=== PATIENT | male | born 1935 | race Caucasian/White ===

== ENCOUNTER 2024-05-01 09:41 | Inpatient (IN) | payer OTHER, MEDICARE ==
[2024-05-01 10:28] VITALS: BMI 22.4
[2024-05-01] MEDS: ACETAMINOPHEN 1000 MG/100 ML BAG IVPB ONE (10:59)
[2024-05-01] MEDS: ONDANSETRON 4 MG/2 ML VIAL IVPUSH ONE (10:59)
[2024-05-01] MEDS: SODIUM CHLORIDE 0.9% 500 ML INFUS.BAG IV ONE (10:59)
[2024-05-01 12:24] LABS: HEMATOCRIT 38.4 % (35.4-49); HEMOGLOBIN 12.5 G/dL (11.7-16.9); MCHC 32.6 g/dl (32.0-35.9); MEAN CELL VOLUME 101.2 fl (80-96); MEAN PLT VOLUME 8.3 fl (7.5-11.1); PLATELET COUNT 206.4 10^3/uL (134-434); RBC 3.79 10^6/uL (4.00-5.60); RDW 17.8 % (11.9-15.9)
[2024-05-01 12:36] LABS: ALK PHOS 212 U/L (45-117); ANION GAP 12 mmol/L (4-13); CALCIUM 9.4 mg/dl (8.5-10.1); CHLORIDE 100 mmol/L (98-107); CO2 28 mmol/L (21-32); CREATININE 0.7 mg/dl (0.6-1.3); GLUCOSE,RANDOM 122 mg/dl (74-106); MAGNESIUM 1.8 mg/dL (1.8-2.4); POTASSIUM 4.2 mmol/L (3.5-5.1); SGOT/AST 19 U/L (15-37); SGPT/ALT 8 U/L (7-52); SODIUM 140 mmol/L (136-145); TOT PROT 7.2 g/dl (6.4-8.2)
[2024-05-01 12:53] LABS: PLATELET ESTIMATE ADEQUATE
[2024-05-01] MEDS: LACTATED RINGERS SOLUTION 1,000 ML/1,000 ML INFUS.BAG IV SCH (15:19)
[2024-05-01] MEDS ORDERED: morphine SULFATE 4 MG/ML VIAL ONE (17:58)
[2024-05-01] MEDS: morphine CARPU-JECT 4 MG/1 ML DISP.SYRIN IVPUSH ONE (18:01)
[2024-05-02] MEDS ORDERED: LACTATED RINGERS SOLUTION 1,000 ML/1,000 ML INFUS.BAG IV SCH (00:28)
[2024-05-02] MEDS ORDERED: ONDANSETRON 4 MG/2 ML VIAL IVPUSH PRN (01:26)
[2024-05-02] MEDS: LACTATED RINGERS SOLUTION 1,000 ML/1,000 ML INFUS.BAG IV SCH (01:30)
[2024-05-02] MEDS: MINERAL OIL ENEMA 133 ML ENEMA RC ONE ×2 (01:37→05:12)
[2024-05-02] MEDS: ACETAMINOPHEN 1000 MG/100 ML BAG IVPB PRN (02:29)
[2024-05-02 09:02] LABS: INR 1.25 (0.83-1.09); PROTHROMBIN TIME (PATIENT) 13.8 SEC (9.7-13.0)
[2024-05-02 09:06] LABS: HEMATOCRIT 37.2 % (35.4-49); MCHC 32.3 g/dl (32.0-35.9); MEAN PLT VOLUME 7.5 fl (7.5-11.1); PLATELET COUNT 212 10^3/uL (134-434); RBC 3.76 M/mm3 (4.00-5.60); RDW 19.6 % (11.9-15.9); WHITE BLOOD COUNT 6.2 K/mm3 (4.0-10.0)
[2024-05-02 09:15] LABS: POTASSIUM 4.1 mmol/L (3.5-5.1)
[2024-05-02 09:30] LABS: ALBUMIN 2.9 g/dl (3.4-5.0); BLOOD UREA NITROGEN 22.9 mg/dL (7-18)
[2024-05-02 09:32] LABS: CALCIUM 8.8 mg/dL (8.5-10.1)
[2024-05-02 09:33] LABS: CREATININE 0.7 mg/dL (0.55-1.3)
[2024-05-02 09:35] LABS: BILIRUBIN,TOTAL 1.8 mg/dL (0.2-1)
[2024-05-03] MEDS: ACETAMINOPHEN 1000 MG/100 ML BAG IVPB PRN (04:00)
[2024-05-03 09:59] LABS: BASO % 0.3 % (0-2.0); EOS % 0.4 % (0-4.5); HEMOGLOBIN 11.8 GM/dL (11.7-16.9); LYMPH % 13.1 % (8-40); MCH 32.1 pg (25.7-33.7); MCHC 32.8 g/dl (32.0-35.9); MEAN CELL VOLUME 97.9 fl (80-96); MEAN PLT VOLUME 7.7 fl (7.5-11.1); NEUT % 72.2 % (42.8-82.8); PLATELET COUNT 210 10^3/uL (134-434); RBC 3.68 M/mm3 (4.00-5.60); RDW 19.3 % (11.9-15.9); WHITE BLOOD COUNT 4.7 K/mm3 (4.0-10.0)
[2024-05-03 10:21] LABS: ALBUMIN 2.8 g/dl (3.4-5.0); MAGNESIUM 1.7 mg/dL (1.8-2.4)
[2024-05-03 10:23] LABS: BILIRUBIN,DIRECT 0.6 mg/dL (0.0-0.2)
[2024-05-03 10:24] LABS: PHOSPHOROUS 3.4 mg/dL (2.5-4.9)
[2024-05-03 10:25] LABS: BILIRUBIN,TOTAL 1.8 mg/dL (0.2-1); TOT PROT 5.9 g/dl (6.4-8.2)
[2024-05-03 10:28] LABS: POTASSIUM 3.8 mmol/L (3.5-5.1)
[2024-05-03 10:30] LABS: BLOOD UREA NITROGEN 21.4 mg/dL (7-18); CALCIUM 8.4 mg/dL (8.5-10.1)
[2024-05-03 10:34] LABS: CREATININE 0.6 mg/dL (0.55-1.3)
[2024-05-03] MEDS: MAGNESIUM 1GM/D5W - 1 GM/100 ML IVPB IVPB ONE (11:37)
[2024-05-03] MEDS ORDERED: LIDOCAINE HCL/PF 2% SDV 5ML VIAL ONE (13:56)
[2024-05-03] MEDS ORDERED: DEXAMETHASONE SOD PHOSPHATE 4 MG/1 ML VIAL ONE (13:56)
[2024-05-03] MEDS ORDERED: ONDANSETRON 4 MG/2 ML VIAL ONE (13:56)
[2024-05-03] MEDS ORDERED: MIDAZOLAM HCL 2 MG/2 ML SINGLE DOSE VIAL ONE (13:57)
[2024-05-03] MEDS ORDERED: PROPOFOL 20 ML ONE (14:00)
[2024-05-03] MEDS ORDERED: SUCCINYLCHOLINE CHLORIDE 200 MG/10 ML SYRINGE ONE (14:01)
[2024-05-03] MEDS ORDERED: BUPIVACAINE HCL/PF 0.25% (2.5MG/ML) 10 ML VIAL ONE (14:31)
[2024-05-03] MEDS ORDERED: cefOXitin SODIUM 2 GM VIAL (RESTRICTED TO ID) IVPB ONE (15:08)
[2024-05-03] MEDS: cefOXitin SODIUM 2 GM VIAL (RESTRICTED TO ID) IVPB ONE (15:13)
[2024-05-03] MEDS ORDERED: INDOCYANINE GREEN 25 MG/10 ML VIAL IVPUSH ONE (16:09)
[2024-05-03] MEDS: BUPIVACAINE HCL/PF 2.5 MG/ML - 30 ML VIAL IJ ONE (16:51)
[2024-05-03] MEDS ORDERED: ONDANSETRON 4 MG/2 ML VIAL IVPUSH PRN ×2 (17:44→18:42)
[2024-05-03] MEDS: LABETALOL HCL 20 MG/4 ML VIAL IVPUSH ONE (17:45)
[2024-05-03] MEDS: ACETAMINOPHEN 1000 MG/100 ML BAG IVPB SCH (18:30)
[2024-05-03] MEDS: LACTATED RINGERS SOLUTION 1,000 ML IV SCH (19:29)
[2024-05-03] MEDS: CEFOXITIN SODIUM/DEXTROSE,ISO 1 GM/50 ML BAG IVPB SCH (23:07)
[2024-05-03] MEDS: MUPIROCIN 2% TOPICAL OINTMENT FOR DECOLONIZATION NS SCH (23:07)
[2024-05-03] MEDS: HEPARIN NA (PORCINE) 5,000 UNITS/ML 1ML VIAL SQ SCH (23:07)
[2024-05-03] MEDS: CHLORHEXIDINE GLUCONATE 4% CLEANSER FOR DECOLONIZATION TP SCH (23:08)
[2024-05-04 07:58] LABS: BASO % 0.1 % (0-2.0); HEMATOCRIT 33.5 % (35.4-49); HEMOGLOBIN 10.7 GM/dL (11.7-16.9); LYMPH % 4.5 % (8-40); MCH 31.8 pg (25.7-33.7); MEAN CELL VOLUME 99.5 fl (80-96); MEAN PLT VOLUME 7.7 fl (7.5-11.1); MONO % 12.2 % (3.8-10.2); NEUT % 83.2 % (42.8-82.8); PLATELET COUNT 192 10^3/uL (134-434); RBC 3.37 M/mm3 (4.00-5.60); RDW 18.9 % (11.9-15.9); WHITE BLOOD COUNT 5.9 K/mm3 (4.0-10.0)
[2024-05-04 08:17] LABS: POTASSIUM 4.1 mmol/L (3.5-5.1)
[2024-05-04 08:21] LABS: BLOOD UREA NITROGEN 27.4 mg/dL (7-18); CALCIUM 8.2 mg/dL (8.5-10.1); MAGNESIUM 1.9 mg/dL (1.8-2.4)
[2024-05-04 08:25] LABS: CREATININE 0.9 mg/dL (0.55-1.3); PHOSPHOROUS 3.6 mg/dL (2.5-4.9)
[2024-05-04] MEDS: PANTOPRAZOLE SODIUM 40 MG VIAL IVPUSH SCH (10:53)
[2024-05-05] MEDS ORDERED: ONDANSETRON 4 MG/2 ML VIAL IVPUSH PRN (07:37)
[2024-05-05] MEDS: LACTATED RINGERS SOLUTION 1,000 ML IV SCH (09:22)
[2024-05-05] MEDS: PANTOPRAZOLE SODIUM 40 MG VIAL IVPUSH SCH (09:23)
[2024-05-05] MEDS: HEPARIN NA (PORCINE) 5,000 UNITS/ML 1ML VIAL SQ SCH (09:23)
[2024-05-05 09:35] LABS: HEMATOCRIT 34.3 % (35.4-49); HEMOGLOBIN 11.1 GM/dL (11.7-16.9); MCH 32.2 pg (25.7-33.7); MCHC 32.4 g/dl (32.0-35.9); MEAN CELL VOLUME 99.5 fl (80-96); MEAN PLT VOLUME 7.5 fl (7.5-11.1); PLATELET COUNT 195 10^3/uL (134-434); RBC 3.45 M/mm3 (4.00-5.60); WHITE BLOOD COUNT 5.2 K/mm3 (4.0-10.0)
[2024-05-05 09:45] LABS: POTASSIUM 3.8 mmol/L (3.5-5.1)
[2024-05-05 09:51] LABS: BLOOD UREA NITROGEN 23.9 mg/dL (7-18); CALCIUM 8.3 mg/dL (8.5-10.1)
[2024-05-05 09:52] LABS: MAGNESIUM 1.8 mg/dL (1.8-2.4)
[2024-05-05 09:55] LABS: CREATININE 0.7 mg/dL (0.55-1.3)
[2024-05-05] MEDS: ACETAMINOPHEN 1000 MG/100 ML BAG IVPB SCH (11:02)
[2024-05-05] MEDS: NAPH,MB-DB/K PH,MBDB POWDER PACKET PO ONE (14:24)
[2024-05-05] MEDS: MINERAL OIL 30 ML UNIT-DOSE CUP PO ONE (16:00)
[2024-05-05 16:22] LABS: BASO % 0.3 % (0-2.0); EOS % 1.5 % (0-4.5); HEMATOCRIT 34.8 % (35.4-49); HEMOGLOBIN 11.6 GM/dL (11.7-16.9); LYMPH % 15.9 % (8-40); MCH 32.6 pg (25.7-33.7); MCHC 33.2 g/dl (32.0-35.9); MEAN CELL VOLUME 98.4 fl (80-96); MEAN PLT VOLUME 7.5 fl (7.5-11.1); MONO % 9.5 % (3.8-10.2); NEUT % 72.8 % (42.8-82.8); PLATELET COUNT 201 10^3/uL (134-434); RBC 3.54 M/mm3 (4.00-5.60); RDW 19.2 % (11.9-15.9); WHITE BLOOD COUNT 5.9 K/mm3 (4.0-10.0)
[2024-05-06 08:59] LABS: BASO % 0.2 % (0-2.0); EOS % 1.5 % (0-4.5); HEMATOCRIT 33.5 % (35.4-49); LYMPH % 16.6 % (8-40); MCH 32.1 pg (25.7-33.7); MCHC 32.8 g/dl (32.0-35.9); MEAN PLT VOLUME 7.6 fl (7.5-11.1); MONO % 9.4 % (3.8-10.2); NEUT % 72.3 % (42.8-82.8); PLATELET COUNT 185 10^3/uL (134-434); RBC 3.42 M/mm3 (4.00-5.60); RDW 18.7 % (11.9-15.9); WHITE BLOOD COUNT 5.1 K/mm3 (4.0-10.0)
[2024-05-06 09:41] LABS: BLOOD UREA NITROGEN 15.6 mg/dL (7-18); CALCIUM 7.9 mg/dL (8.5-10.1); MAGNESIUM 1.6 mg/dL (1.8-2.4)
[2024-05-06 09:45] LABS: CREATININE 0.6 mg/dL (0.55-1.3); PHOSPHOROUS 1.7 mg/dL (2.5-4.9)
[2024-05-06] MEDS ORDERED: NAPH,MB-DB/K PH,MBDB POWDER PACKET PO ONE (10:00)
[2024-05-06] MEDS ORDERED: METOPROLOL TARTRATE 5 MG/5 ML VIAL IVPB ONE (11:00)
[2024-05-06] MEDS: METOPROLOL TARTRATE 25 MG TABLET (FP) PO ONE (11:07)
[2024-05-06] MEDS: MAGNESIUM 2GM/50ML STERILE WATER IVPB IVPB ONE (11:08)
[2024-05-06] MEDS: NAPH,MB-DB/K PH,MBDB POWDER PACKET PO ONE (11:47)
[2024-05-06] MEDS: SODIUM PHOSPHATE - 15 MM in SODIUM CHLORIDE 250 ML IVPB ONE (12:46)
[2024-05-06] MEDS ORDERED: ROCURONIUM BROMIDE 50 MG/5 ML SYRINGE ONE (13:56)
[2024-05-06] MEDS ORDERED: ETOMIDATE 20 MG/10 ML VIAL IVPUSH ONE (13:56)
[2024-05-06] MEDS ORDERED: PROPOFOL 20 ML ONE ×2 (13:57→16:22)
[2024-05-06] MEDS ORDERED: BUPIVACAINE HCL/PF 0.25% (2.5MG/ML) 10 ML VIAL ONE (14:07)
[2024-05-06] MEDS: ceFAZolin SODIUM 1 GM VIAL IVPB ONE (14:35)
[2024-05-06] MEDS: LACTATED RINGERS SOLUTION 1,000 ML IV SCH ×2 (15:24→17:11)
[2024-05-06] MEDS: ACETAMINOPHEN 1000 MG/100 ML BAG IVPB ONE (15:25)
[2024-05-06] MEDS: BUPIVACAINE HCL/PF 0.25% (2.5MG/ML) 10 ML VIAL IJ ONE ×2 (16:13)
[2024-05-06] MEDS ORDERED: NEOSTIGMINE METHYLSULFATE 0.5 MG/1 ML - 10 ML MDV ONE (16:34)
[2024-05-06] MEDS ORDERED: ONDANSETRON 4 MG/2 ML VIAL IVPUSH PRN ×2 (17:11→17:20)
[2024-05-06] MEDS ORDERED: LACTATED RINGERS SOLUTION 1,000 ML IV SCH (17:15)
[2024-05-06 17:49] LABS: POTASSIUM 4.1 mmol/L (3.5-5.1)
[2024-05-06 17:51] LABS: BLOOD UREA NITROGEN 14.1 mg/dL (7-18); CALCIUM 7.9 mg/dL (8.5-10.1)
[2024-05-06 17:52] LABS: ALBUMIN 2.7 g/dl (3.4-5.0)
[2024-05-06 17:55] LABS: CREATININE 0.6 mg/dL (0.55-1.3)
[2024-05-06 17:56] LABS: BILIRUBIN,TOTAL 0.9 mg/dL (0.2-1); TOT PROT 6.1 g/dl (6.4-8.2)
[2024-05-06] MEDS: ACETAMINOPHEN 1000 MG/100 ML BAG IVPB SCH (21:40)
[2024-05-06] MEDS: HEPARIN NA (PORCINE) 5,000 UNITS/ML 1ML VIAL SQ SCH (21:41)
[2024-05-07 08:36] LABS: BASO % 0.1 % (0-2.0); EOS % 0.1 % (0-4.5); HEMATOCRIT 33.2 % (35.4-49); HEMOGLOBIN 10.7 GM/dL (11.7-16.9); LYMPH % 17.1 % (8-40); MCH 31.9 pg (25.7-33.7); MCHC 32.2 g/dl (32.0-35.9); MEAN CELL VOLUME 98.8 fl (80-96); MEAN PLT VOLUME 7.1 fl (7.5-11.1); MONO % 11.4 % (3.8-10.2); NEUT % 71.3 % (42.8-82.8); PLATELET COUNT 200 10^3/uL (134-434); RBC 3.36 M/mm3 (4.00-5.60); RDW 18.5 % (11.9-15.9); WHITE BLOOD COUNT 5.3 K/mm3 (4.0-10.0)
[2024-05-07 08:57] LABS: POTASSIUM 4.1 mmol/L (3.5-5.1)
[2024-05-07 09:00] LABS: BLOOD UREA NITROGEN 15.6 mg/dL (7-18)
[2024-05-07 09:01] LABS: ALBUMIN 2.4 g/dl (3.4-5.0); MAGNESIUM 1.8 mg/dL (1.8-2.4)
[2024-05-07 09:04] LABS: CREATININE 0.6 mg/dL (0.55-1.3)
[2024-05-07 09:05] LABS: BILIRUBIN,TOTAL 0.9 mg/dL (0.2-1); TOT PROT 5.3 g/dl (6.4-8.2)
[2024-05-07] MEDS: PANTOPRAZOLE SODIUM 40 MG VIAL IVPUSH SCH (09:38)
[2024-05-07] MEDS: MULTIVITAMINS (DAILY MVI) TABLET (FP) PO SCH (13:04)
[2024-05-07] MEDS ORDERED: ACETAMINOPHEN 325 MG TABLET (FP) PO PRN (16:30)
[2024-05-08] MEDS: PANTOPRAZOLE 40 MG TABLET PO SCH (09:43)
[2024-05-08 14:48] VITALS: BP 119/72; PULSE 89; RESP 18; TEMP 98.8
== END 2024-05-08 19:52 | DRG 330 ==
LOC: FER 09:41 → J6S 21:57 → JICU 05-03 21:21 → J8W 05-04 20:37
PROVIDERS: ADMIT Internal Medicine; ATTEND Nurse Practitioner Family
PROC: 0DQ83ZZ Repair Small Intestine, Percutaneous Approach (ICD-10-PCS; 2024-05-03)
PROC: 0WQF4ZZ Repair Abdominal Wall, Percutaneous Endoscopic Approach (ICD-10-PCS; 2024-05-03)
PROC: 8E0W4CZ Robotic Assisted Procedure of Trunk Region, Percutaneous Endoscopic Approach (ICD-10-PCS; 2024-05-06)
PROC: 0YU50JZ Supplement Right Inguinal Region with Synthetic Substitute, Open Approach (ICD-10-PCS; principal; 2024-05-06 12:45)
DX: K41.30 Unilateral femoral hernia, with obstruction, without gangrene, not specified as recurrent (principal); I48.20 Chronic atrial fibrillation, unspecified; K40.30 Unilateral inguinal hernia, with obstruction, without gangrene, not specified as recurrent; J98.11 Atelectasis; I10 Essential (primary) hypertension; D72.829 Elevated white blood cell count, unspecified; E83.51 Hypocalcemia; T81.82XA Emphysema (subcutaneous) resulting from a procedure, initial encounter; Y83.8 Other surgical procedures as the cause of abnormal reaction of the patient, or of later complication, without mention of misadventure at the time of the procedure
CPT/HCPCS: 0241U-QW; 36415; 71045-TC-FY; 74018-TC-FY; 74019-TC-FY; 74177-TC; 80048; 80053; 80076; 81003; 81015; 82607; 82746; 83605; 83690; 83735; 84100; 84484; 85025; 85027; 85610; 86850; 86900; 86901; 87086; 93005; 93010; 93306-TC; 94010; 94760; 97116-GP; 97161-GP; 99285-25; C1781; J0131; J1644; Q9967

== ENCOUNTER 2024-09-07 12:28 | Inpatient (IN) | payer OTHER, MEDICARE ==
[2024-09-07 14:26] LABS: MCHC 32.2 g/dl (32.3-36.5); MEAN CELL VOLUME 102.6 fl (79.0-92.2); MEAN PLT VOLUME 9.4 fl (9.4-12.4); RDW 14.6 % (12.6-16.6)
[2024-09-07 14:31] LABS: INR 1.12 (0.83-1.09); PROTHROMBIN TIME (PATIENT) 12.4 SEC (9.7-13.0)
[2024-09-07 14:34] LABS: ACTIVATED PTT 30.1 SECONDS (25.2-36.5)
[2024-09-07 14:39] LABS: ALK PHOS 103.0 U/L (45-117); CO2 24.0 mmol/L (21-32); CREATININE 0.6 mg/dl (0.6-1.3); GLUCOSE,RANDOM 109.0 mg/dl (74-106); SGOT/AST 22.0 U/L (15-37); SGPT/ALT 12.0 U/L (7-52); TOT PROT 6.1 g/dl (6.4-8.2)
[2024-09-07] MEDS ORDERED: ACETAMINOPHEN INJECTION 100 ML ONE (16:02)
[2024-09-07] MEDS: ACETAMINOPHEN 1000 MG/100 ML BAG IVPB ONE (16:05)
[2024-09-07] MEDS ORDERED: ACETAMINOPHEN 1000 MG/100 ML BAG IVPB PRN (17:43)
[2024-09-07 18:49] VITALS: BMI 20.2
[2024-09-08 07:48] LABS: ABSOLUTE IMMATURE GRANULOCYTES 0.02 x10^3/uL (0.0-0.031); BASOPHILS # 0.04 x10^3/uL (0.01-0.08); EOSINOPHIL % 2.3 % (0.8-7.0); EOSINOPHILS # 0.15 x10^3/uL (0.04-0.54); MCHC 32.2 g/dl (32.3-36.5); MEAN CELL VOLUME 102.5 fl (79.0-92.2); MEAN PLT VOLUME 9.8 fl (9.4-12.4); MONOCYTE # 0.80 x10^3/uL (0.30-0.82); MONOCYTE % 12.2 % (5.3-12.2); RDW 14.7 % (12.6-16.6)
[2024-09-08 09:04] LABS: CO2 27.0 mmol/L (21-32); CREATININE 0.6 mg/dl (0.6-1.3); GLUCOSE,RANDOM 81.0 mg/dl (74-106)
[2024-09-08] MEDS: HEPARIN NA (PORCINE) 5,000 UNITS/ML 1ML VIAL SQ SCH (21:15)
[2024-09-09 02:10] VITALS: RESP 18
[2024-09-09 07:43] LABS: MCHC 32.3 g/dl (32.3-36.5); MEAN CELL VOLUME 101.7 fl (79.0-92.2); MEAN PLT VOLUME 9.4 fl (9.4-12.4); RDW 14.6 % (12.6-16.6)
[2024-09-09 10:26] LABS: CO2 26.0 mmol/L (21-32); CREATININE 0.5 mg/dl (0.6-1.3); GLUCOSE,RANDOM 92.0 mg/dl (74-106)
[2024-09-10] MEDS ORDERED: ACETAMINOPHEN 325 MG TABLET (FP) PO PRN (07:17)
[2024-09-10 10:26] VITALS: BP 118/76; PULSE 76; TEMP 98.2
== END 2024-09-10 14:12 | DRG 536 ==
LOC: FER 12:28 → FM/S 17:50
PROVIDERS: ADMIT Internal Medicine; ATTEND Internal Medicine
DX: S32.592A Other specified fracture of left pubis, initial encounter for closed fracture (principal); I24.89 Other forms of acute ischemic heart disease; I48.21 Permanent atrial fibrillation; R79.89 Other specified abnormal findings of blood chemistry; W19.XXXA Unspecified fall, initial encounter; Y93.89 Activity, other specified; Y92.89 Other specified places as the place of occurrence of the external cause; Y99.8 Other external cause status
CPT/HCPCS: 36415; 70450-TC; 71045-TC-FY; 71250-TC; 72170-TC-FY; 73552-TC-LT-FY; 80048; 80053; 81003; 81015; 83735; 84100; 84484; 85025; 85027; 85610; 85730; 87635; 93005; 97116-GP; 97161-GP; 99285-25